=== PATIENT | female | born 1955 | race Asian ===

== ENCOUNTER 2017-06-15 06:02 | Emergency (ER) | payer OTHER ==
[~2017-06-15] VITALS: Ht 152.4 cm; Wt 54.4 kg
--- NOTE | ~2017-06-15 | EKG ---
[place] [address] [facility] [place] [address] ELECTROCARDIOGRAM REPORT Name: PEREZ LOWE [id number] Admission: 06/15/17 Attend Phys: Discharge: Date of : 57 Report #: [id number] THIS REPORT FOR: //name// [facility] ED Test Date: 2017-06-15 Test Time: 06:21:37 Pat Name: PEREZ LOWE Department: Room: Gender: F Log Sawyer: JT : 1955 Requested By: Chelsey Carson Order Number: [id number] MD: Vick Goodwin Measurements Intervals [place] Rate: 82 P: 70 NE: 234 QRS: 49 QRSD: 88 T: 61 QT: 434 QTc: 507 Interpretive Statements Sinus rhythm Prolonged NE interval Borderline repolarization abnormality Prolonged QT interval No previous ECG available for comparison Electronically Signed On 06-15-2017 9:06:39 [employer]IRTH ATTENDANT by Vick Goodwin [email or web address] <ELECTRONICALLY SIGNED> By: Vick Goodwin MD, [facility] 06/15/17 0906 0621 06 Vick Goodwin MD, FAC /EPI
[2017-06-15] MEDS ORDERED: ADVAIR 250-501 EACH INH (06:19)
[2017-06-15] MEDS ORDERED: PAZEO2.5 ML OPHTHALMIC (06:20)
[2017-06-15] MEDS ORDERED: ZYRTEC10 M5 PO (06:21)
[2017-06-15] MEDS ORDERED: SINGULAIR 10 MG10 MG PO (06:21)
[2017-06-15] MEDS ORDERED: PROAIR HFA8.5 GM INH (06:22)
[2017-06-15] MEDS ORDERED: LYRICA 50 MG50 MG PO (06:26)
[2017-06-15] MEDS ORDERED: NORVASC5 MG PO (06:26)
[2017-06-15 06:47] LABS: ABSOLUTE NEUTROPHILS 6.5 thou/uL (1.4-8.2); BASOPHILS 0.6 % (0.0-2.0); EOSINOPHILS 3.4 % (0.0-3.0); HEMATOCRIT 38.4 % (37.0-47.0); HEMOGLOBIN 12.7 gm/dL (12.0-15.0); LYMPHOCYTES 10.8 % (24.0-44.0); MCH 26.9 pg (26.0-34.0); MCHC 33.1 g/dL (28.0-37.0); MCV 81.3 fL (80.0-100.0); MONOCYTES 3.2 % (1.0-8.0); RBC 4.72 mil/uL (4.20-5.00); RDW 13.6 % (10.5-14.5)
[2017-06-15 06:52] LABS: ANION GAP 7 mmol/L (7-16); BUN 12 mg/dL (7-18); CALCIUM 8.8 mg/dL (8.5-10.1); CHLORIDE 105 mmol/L (98-107); CO2 29 mmol/L (21-32); CREATININE 0.8 mg/dL (0.6-1.0); GLUCOSE 113 mg/dL (74-106); POTASSIUM 3.1 mmol/L (3.5-5.1); SODIUM 141 mmol/L (136-145)
[2017-06-15 07:01] LABS: ALBUMIN 3.5 g/dL (3.4-5.0); DIRECT BILIRUBIN 0.1 mg/dL (<0.1-0.3); LIPASE 212 U/L (73-393); SGOT 59 U/L (15-37); SGPT 29 U/L (30-65); TOTAL BILIRUBIN 0.4 mg/dL (<0.1-1.0); TOTAL PROTEIN 7.5 g/dL (6.4-8.2); TROPONIN-I < 0.04 ng/mL (<0.06)
[2017-06-15 07:39] LABS: URINE BILIRUBIN NEGATIVE (Negative); URINE BLOOD NEGATIVE (Negative); URINE CLARITY CLEAR; URINE COLOR YELLOW; URINE GLUCOSE-RANDOM* NEGATIVE (Negative); URINE KETONES NEGATIVE (Negative); URINE LEUKOCYTES 2+ (Negative); URINE NITRITE NEGATIVE (Negative); URINE PROTEIN (DIPSTICK) NEGATIVE (Negative); URINE SPECIFIC GRAVITY 1.015 (1.005-1.035); URINE UROBILINOGEN 0.2 E.U./dl (0.2-1.0)
[2017-06-15 07:46] LABS: SQUAMOUS >10 Many /LPF (0-3)
[2017-06-15 07:47] LABS: BACTERIA >30 Many /HPF (None Seen); CASTS None Seen /LPF (None Seen); CRYSTALS None Seen /LPF (None Seen); URINE RBC None Seen /HPF (0-2)
[2017-06-15 08:14] LABS: PLATELET COUNT 110 thou/uL (150-400)
[2017-06-15] MEDS ORDERED: KEFLEX500 M1 PO (08:59)
[2017-06-15] MEDS ORDERED: PHENERGAN 25 MG25 M1 PO (09:00)
[2017-06-15] MEDS ORDERED: ZOFRAN ODT4 MG PO (09:00)
== END 2017-06-15 10:11 | disposition home or self-care (01) ==
LOC: ER 06:02
PROVIDERS: Emergency Medicine
DX: R10.13 Epigastric pain (principal); R11.2 Nausea with vomiting, unspecified; E87.6 Hypokalemia; N39.0 Urinary tract infection, site not specified; J45.909 Unspecified asthma, uncomplicated